=== PATIENT | male | born 1980 | race Caucasian/White ===

== ENCOUNTER 2020-03-17 12:02 | Emergency (ER) | payer BC, OTHER ==
--- NOTE | 2020-03-17 13:08 | EDM.PDOC ---
ED HPI GENERAL MEDICAL PROBLEM - General Chief Complaint: Back Pain or Injury Stated Complaint: BACK INJURY Time Seen by Provider: 03/17/20 12:33 Source of Information: Reports: Patient History Limitations: Reports: No Limitations - History of Present Illness INITIAL COMMENTS - FREE TEXT/NARRATIVE: Patient is a 39-year-old male who presents to the emergency department with complaints of ongoing low back pain after being bucked off a horse on March 12. He was seen in the walk-in clinic the day of the injury started on a course of Flexeril and prednisone which she states has improved his symptoms, however he still has significant low back pain with movement. He denies any bowel or bladder dysfunction. Pain does not radiate down his lower extremities. Pain is localized to the left paraspinous muscles. Prior to coming to ER he called over to the walk-in clinic at [place] and were advised to come to the emergency department to have an MRI done. He denies a history of chronic back pain and has never had any spinal surgeries. Left Lower Back Pain Score (Numeric/FACES): 5 - Related Data Allergies Allergy/AdvReac Type Severity Reaction Status Date / Time No Known Allergies Allergy Verified 03/17/20 12:37 Past Medical History Musculoskeletal History: Reports: Other (See Below) Other Musculoskeletal History: skin graft - Past Surgical History GI Surgical History: Reports: Appendectomy Social & Family History - Tobacco Use Smoking Status *Q: Current Every Day Smoker Years of Tobacco use: 10 Packs/Tins Daily: 0.5 - Caffeine Use Caffeine Use: Reports: Coffee, Soda, Tea - Recreational Drug Use Recreational Drug Use: No ED ROS GENERAL - Review of Systems Review Of Systems: Comprehensive ROS is negative, except as noted in HPI. ED EXAM,LOWER BACK PAIN/INJURY - Physical Exam Exam: See Below Exam Limited By: No Limitations General Appearance: Alert, WD/WN, No Apparent Distress Respiratory/Chest: No Respiratory Distress, Lungs Clear, Normal Breath Sounds, No Accessory Muscle Use, Chest Non-Tender Cardiovascular: Normal Peripheral Pulses, Regular Rate, Rhythm, No Edema, No Gallop, No JVD, No Murmur, No Rub Back Exam: Normal Inspection, Paraspinal Tenderness (Left lateral to L4. Pain is reproducible to the left lateral area of L4 by palpating the area to the left lateral of T10 as well.) Neurological: Alert, Normal Mood/Affect, Normal Dorsiflexion, CN II-XII Intact, Normal Plantar Flexion, Normal Gait, Normal Reflexes, No Motor/Sensory Deficits , Oriented x 3 Psychiatric: Normal Affect, Normal Mood Skin Exam: Warm, Dry, Intact, Normal Color, No Rash Course - Vital Signs Last Recorded V/S: Last Vital Signs Temp 98.4 F 03/17/20 12:40 Pulse 91 03/17/20 12:40 Resp 20 03/17/20 12:40 BP 141/91 H 03/17/20 12:40 Pulse Ox 98 03/17/20 12:40 - Re-Assessments/Exams Free Text/Narrative Re-Assessment/Exam: On exam, patient is likely suffering from muscle spasms resulting in lumbar radiculopathy. He does have some improvement with the Flexeril when he takes it. Contacted the radiology department and they are able to work him in for an MRI at 245 this afternoon. Patient prefers to have this done as an outpatient as opposed to waiting in the emergency department. I will discharge him with instructions to have the MR I completed as scheduled and follow-up in the clinic on Friday. If results of the MRI are available this evening, I will call and notify him. Departure - Departure Time of Disposition: 13:13 Disposition: Home, Self-Care 01 Condition: Good Clinical Impression: Lumbar radiculopathy, acute - Discharge Information *PRESCRIPTION DRUG MONITORING PROGRAM REVIEWED*: No *COPY OF PRESCRIPTION DRUG MONITORING REPORT IN PATIENT MARION: No Instructions: Radicular Pain Referrals: PCP,None [Primary Care Provider] - Forms: ED Department Discharge Additional Instructions: You were seen in the emergency department today for ongoing left lumbar pain after being bucked off a horse on Friday. Arrangements have been made for you to have an MRI completed at 245pm this afternoon. If the results are available this evening, you will be notified. Otherwise, keep your appointment with SUNNY Hansen in the clinic on Friday for ongoing management and for the MRI results. Return to the ER as needed. Sepsis Event Note - Evaluation Sepsis Screening Result: No Definite Risk - Focused Exam Vital Signs: Vital Signs Temp Pulse Resp BP Pulse Ox 03/17/20 12:40 98.4 F 91 20 141/91 H 98 Date Exam was Performed: 03/17/20 Time Exam was Performed: 17:18
== END 2020-03-17 13:28 | disposition home or self-care (01) ==
LOC: JD.ED 12:02
DX: M54.16 Radiculopathy, lumbar region (principal); F17.210 Nicotine dependence, cigarettes, uncomplicated
CPT/HCPCS: 99282; 99283